=== PATIENT | female | born 1950 | race African-American/Black ===

== ENCOUNTER 2018-10-11 14:44 | Emergency (ER) | payer OTHER ==
[~2018-10-11] VITALS: Ht 167.6 cm; Wt 80.0 kg
[2018-10-11] MEDS ORDERED: ESTR0.5T PO (14:55)
[2018-10-11] MEDS ORDERED: CYCL5TAB PO (14:56)
[2018-10-11] MEDS ORDERED: tylenol 3 (14:56)
[2018-10-11] MEDS ORDERED: TRAMADOL 50MG TABLET PO ONE (16:45)
[2018-10-11 18:35] VITALS: BP 128/85
== END 2018-10-11 18:42 | disposition home or self-care (01) ==
LOC: ER 15:56
DX: S63.512A Sprain of carpal joint of left wrist, initial encounter (principal); M54.5 Low back pain; M25.512 Pain in left shoulder; M25.511 Pain in right shoulder; V49.9XXA Car occupant (driver) (passenger) injured in unspecified traffic accident, initial encounter; Y93.89 Activity, other specified; Y92.410 Unspecified street and highway as the place of occurrence of the external cause; Y99.8 Other external cause status
CPT/HCPCS: 29125; 72100; 73030; 73110; 99283